=== PATIENT | male | born 1965 | race Caucasian/White ===

== ENCOUNTER 2018-01-10 11:39 | Emergency (ER) | payer OTHER ==
[2018-01-10 12:08] VITALS: BP 138/76
[2018-01-10] MEDS ORDERED: MORPHINE SUL30 M5 PO (12:10)
[2018-01-10] MEDS ORDERED: BUMETANIDE2 MG PO (12:10)
[2018-01-10] MEDS ORDERED: ALLOPURINOL100 MG PO (12:10)
[2018-01-10] MEDS ORDERED: VITAMIN D50000 UNIT PO (12:10)
[2018-01-18] MEDS ORDERED: MORPHINE SUL30 M5 PO (12:28)
[2018-01-18] MEDS ORDERED: MEDDOSEPAK PO (12:30)
== END 2018-01-10 12:36 | disposition home or self-care (01) ==
LOC: ED 11:39
DX: S39.012A Strain of muscle, fascia and tendon of lower back, initial encounter (principal); G89.29 Other chronic pain; M54.6 Pain in thoracic spine; M54.5 Low back pain; M10.9 Gout, unspecified; I10 Essential (primary) hypertension; X58.XXXA Exposure to other specified factors, initial encounter

== ENCOUNTER 2018-02-14 10:21 | Emergency (ER) | payer OTHER ==
[~2018-02-14] VITALS: Ht 185.4 cm; Wt 116.0 kg
[~2018-02-14 10:21] MED LIST: ALLOPURINOL100 MG PO; BUMETANIDE2 MG PO; INDOMETHACIN25 MG PO; MEDDOSEPAK PO; MORPHINE SUL30 M5 PO; VITAMIN D50000 UNIT PO
[2018-02-14] MEDS ORDERED: ZYLOPRIM300 MG PO (10:54)
[2018-02-14] MEDS ORDERED: INDOCIN50 MG/CAP PO (10:54)
[2018-02-14] MEDS ORDERED: BUMETANIDE1 MG PO (10:55)
[2018-02-14 11:45] VITALS: BP 122/80
== END 2018-02-14 11:45 | disposition home or self-care (01) ==
LOC: ED 10:21
DX: S50.01XA Contusion of right elbow, initial encounter (principal); W01.0XXA Fall on same level from slipping, tripping and stumbling without subsequent striking against object, initial encounter; Y93.54 Activity, bowling

== ENCOUNTER 2018-04-20 06:00 | Day surgery (SDC) | payer OTHER ==
[~2018-04-20] VITALS: Ht 188 cm; Wt 117.0 kg
[~2018-04-20 06:00] MED LIST changes: +BUMETANIDE1 MG PO; +INDOCIN50 MG/CAP PO; +MULTIVITAMI9 PO; +ZYLOPRIM300 MG PO
[2018-04-20 07:30] VITALS: BP 128/72
[2018-05-03] MEDS ORDERED: MORPHINE SUL30 M5 PO (09:04)
== END 2018-04-20 07:45 | disposition home or self-care (01) ==
LOC: ORM 06:00
PROVIDERS: ATTEND Anesthesiology Pain Medicine
DX: M46.1 Sacroiliitis, not elsewhere classified (principal); M70.42 Prepatellar bursitis, left knee
CPT/HCPCS: Q9967

== ENCOUNTER → 2018-04-25 | Outpatient (REF) | payer OTHER ==
[2018-04-25 11:15] LABS: CREATININE 0.8 mg/dL (0.7-1.3)
== END | disposition home or self-care (01) ==
LOC: LAB 09:17
PROVIDERS: ATTEND Anesthesiology Pain Medicine
DX: Z01.812 Encounter for preprocedural laboratory examination (principal)

== ENCOUNTER → 2018-05-03 | Outpatient (REF) | payer OTHER ==
[2018-05-03 08:56] VITALS: BP 139/96
== END | disposition home or self-care (01) | DRG 951 ==
LOC: PAIN/MGT 08:48
PROVIDERS: ATTEND Anesthesiology Pain Medicine
DX: Z09 Encounter for follow-up examination after completed treatment for conditions other than malignant neoplasm (principal)

== ENCOUNTER 2018-08-10 06:05 | Day surgery (SDC) | payer OTHER ==
[~2018-08-10] VITALS: Ht 188 cm; Wt 117.9 kg
[2018-08-10 07:39] VITALS: BP 102/63
== END 2018-08-10 08:21 | disposition home or self-care (01) ==
LOC: ORM 06:05
PROVIDERS: ATTEND Anesthesiology Pain Medicine
DX: M96.1 Postlaminectomy syndrome, not elsewhere classified (principal); M54.5 Low back pain; M51.37 Other intervertebral disc degeneration, lumbosacral region

== ENCOUNTER 2018-08-24 07:03 | Day surgery (SDC) | payer OTHER ==
[~2018-08-24] VITALS: Ht 188 cm; Wt 98.0 kg
[2018-08-24] MEDS ORDERED: MORPHINE SUL30 M5 PO (07:56)
[2018-08-24 09:04] VITALS: BP 106/59
== END 2018-08-24 09:05 | disposition home or self-care (01) ==
LOC: ORM 07:03
PROVIDERS: ATTEND Anesthesiology Pain Medicine
DX: M96.1 Postlaminectomy syndrome, not elsewhere classified (principal); M54.5 Low back pain; M51.37 Other intervertebral disc degeneration, lumbosacral region

== ENCOUNTER 2018-10-19 05:47 | Day surgery (SDC) | payer OTHER ==
[~2018-10-19] VITALS: Ht 188 cm; Wt 121.6 kg
[~2018-10-19 05:47] MED LIST changes: +LIQUID IRON
[2018-10-19] MEDS ORDERED: MORPHINE SUL30 M5 PO (07:43)
[2018-10-19 07:52] VITALS: BP 118/70
[2018-11-15] MEDS ORDERED: MORPHINE SUL30 M5 PO (09:44)
== END 2018-10-19 08:14 | disposition home or self-care (01) ==
LOC: ORM 05:47
PROVIDERS: ATTEND Anesthesiology Pain Medicine
DX: M54.5 Low back pain (principal); M96.1 Postlaminectomy syndrome, not elsewhere classified

== ENCOUNTER 2018-10-27 06:48 | Day surgery (SDC) | payer OTHER ==
[~2018-10-27] VITALS: Ht 188 cm; Wt 122.5 kg
[2018-10-27 08:51] VITALS: BP 110/59
== END 2018-10-27 08:58 | disposition home or self-care (01) ==
LOC: ENDO 06:48
PROVIDERS: ATTEND Surgery
DX: Z12.11 Encounter for screening for malignant neoplasm of colon (principal); K64.8 Other hemorrhoids

== ENCOUNTER 2018-12-07 05:48 | Day surgery (SDC) | payer OTHER ==
[2018-12-07 07:35] VITALS: BP 104/60
[2018-12-07] MEDS ORDERED: MORPHINE SUL30 M5 PO (07:52)
[2018-12-07] MEDS ORDERED: MORPHINE SUL30 M3 PO (07:57)
== END 2018-12-07 08:04 | disposition home or self-care (01) ==
LOC: ORM 05:48
PROVIDERS: ATTEND Anesthesiology Pain Medicine
DX: M54.5 Low back pain (principal); M96.1 Postlaminectomy syndrome, not elsewhere classified

== ENCOUNTER 2019-01-04 05:59 | Day surgery (SDC) | payer OTHER ==
[~2019-01-04] VITALS: Ht 188 cm; Wt 122.5 kg
[~2019-01-04 05:59] MED LIST changes: +MORPHINE SUL30 M3 PO
[2019-01-04] MEDS ORDERED: MORPHINE SUL30 M5 PO (07:33)
[2019-01-04 07:50] VITALS: BP 105/55
[2019-02-07] MEDS ORDERED: EMGALITY120 MG/M1 (09:02)
[2019-02-07] MEDS ORDERED: MORPHINE SUL30 M5 PO (09:20)
[2019-03-07] MEDS ORDERED: MAGNESIUM400 MG PO (08:47)
[2019-03-07] MEDS ORDERED: SUMATRIPTAN SUC50 MG PO (08:49)
[2019-03-07] MEDS ORDERED: INDOMETHACIN50 MG PO (08:51)
[2019-03-07] MEDS ORDERED: MORPHINE SUL30 M5 PO (09:23)
== END 2019-01-04 08:03 | disposition home or self-care (01) ==
LOC: ORM 05:59
PROVIDERS: ATTEND Anesthesiology Pain Medicine
DX: M12.9 Arthropathy, unspecified (principal); M54.5 Low back pain

== ENCOUNTER 2019-05-10 | Day surgery (SDC) | payer OTHER ==
[~2019-05-10] MED LIST changes: +EMGALITY120 MG/M1; +INDOMETHACIN50 MG PO; +MAGNESIUM400 MG PO; +SUMATRIPTAN SUC50 MG PO
[2019-05-10] MEDS ORDERED: MORPHINE SUL30 M5 PO (07:47)
[2019-06-20] MEDS ORDERED: MORPHINE SUL15 MG PO (09:38)
== END 2019-05-10 08:25 | disposition home or self-care (01) ==
DX: M54.5 Low back pain (principal); M96.1 Postlaminectomy syndrome, not elsewhere classified